=== PATIENT | male | born 1995 | race African-American/Black ===

== ENCOUNTER 2017-11-16 01:33 | Emergency (ER) | payer SELFPAY ==
[2017-11-16 02:00] LABS: #Basophils 0.1 thou/uL (0.0-0.2); #Eosinphils 0.3 thou/uL (0.0-0.7); #Lymphocytes 2.2 thou/uL (1.20-3.40); #Monocytes 0.7 thou/uL (0.11-0.59); #Neutrophils 3.4 thou/uL (1.40-6.50); %Basophils 1.5 % (0.0-1.0); %Eosinophils 4.1 % (0.0-10.0); %Lymphocytes 32.2 % (21.0-51.0); Hematocrit 40.1 % (42.0-52.0); Mean Platelet Volume 6.9 fL (7.4-10.4); Red Blood Cell (RBC) Count 4.61 mill/uL (4.70-6.10); White Blood Cell (WBC) Count 6.7 thou/uL (4.8-10.8)
[2017-11-16 02:27] LABS: ALT (SGPT) 11 U/L (8-55); AST (SGOT) 21 U/L (5-34); Acetaminophen Less than 6.0 mcg/mL (10.0-30.0); Alkaline Phosphatase 110 U/L (40-150); Anion Gap 12 mmol/L (10-20); BUN (Urea Nitrogen) 14 mg/dL (8.9-20.6); Bilirubin, Total 0.4 mg/dL (0.2-1.2); CK (CPK) 294 U/L (30-200); Calc. Creatinine Clearance 0 mL/min (70-130); Calcium 9.8 mg/dL (7.8-10.44); Carbon Dioxide 30 mmol/L (22-29); Chloride 102 mmol/L (98-107); Estimated GFR-MDRD Greater than 90; Globulin 3.6 g/dL (2.4-3.5); Protein, Total 7.7 g/dL (6.0-8.3); Salicylate Less than 8.0 mg/dL (15.0-30.0)
[2017-11-16 03:12] LABS: Bilirubin Negative (Negative); Blood, Urine Negative (Negative); Glucose, Urine (Dipstick) Negative (Negative); Ketone, Urine Negative (Negative); Nitrite Negative (Negative); Protein, Urine (Dipstick) 30 mg/dL (Neg-Trace); Urobilinogen 0.2 mg/dL (0.2-1.0)
[2017-11-16 03:13] LABS: Bacteria/HPF None Seen HPF (None Seen); RBC/HPF 0-3 HPF (0-3); Squamous Epithelial 0-3 HPF (0-3)
[2017-11-16 03:22] LABS: Amphetamine Detected (NotDetected); Methadone Not Detected (NotDetected); Methamphetamine Detected (NotDetected)
[2017-11-16 03:31] LABS: Hyaline Casts/LPF 0-3 HYALINE CAST LPF (0-3 Hyaline)
--- NOTE | 2017-11-16 07:21 | RAD ---
CHEST 1 VIEW: Date: 11/16/17 HISTORY: Trauma, pain. COMPARISON: None. FINDINGS: Portable upright chest radiograph demonstrates a normal cardiac silhouette. Pulmonary vessels and hil um are normal. No consolidation or mass. No pneumothorax or osseous abnormality. IMPRESSION: No acute cardiopulmonary process. POS: PPP
--- NOTE | 2017-11-16 11:41 | CT ---
PRELIMINARY REPORT/[facility]/EMERGENCY AFTER HOURS PROCEDURE: EXAM: CT Cervical Spine Without Intravenous Contrast EXAM DATE/TIME: Exam ordered 11/16/2017 1:46 AM CLINICAL HISTORY: 22 years old, male; Injury or trauma; Injury Hanging; Initial encounter; Patient HX: level 2 trauma 22 yo m presents to ed for suicide attempt by hanging. Ems states the noose was low to ground and rep orts pt possibly blacked out. Ems reports this is pt's second attempt at suicide this week per law en forcement but pt denies this and states this is his first attempt. Pt denies neck pain, no signs of t rauma. Denies ETOH or drugs TECHNIQUE: Axial computed tomography images of the cervical spine without intravenous contrast. Coronal and sagittal reformatted images were created and reviewed. COMPARISON: No relevant prior studies available. FINDINGS: Vertebrae: No acute cervical spine fracture is identified. 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 Discs/spinal canal/neural foramina: No acute findings. No spinal canal stenosis. Soft tissues: Normal. Lung apices: The visualized portions of the lung apices are normal. IMPRESSION: No acute cervical spine fracture is identified. Thank you for allowing us to participate in the care of your patient. Dictated and Authenticated by: Tj Avelar MD 11/16/2017 2:06 AM Central Time ([place] & [place]) FINAL REPORT CT CERVICAL SPINE WITHOUT CONTRAST: Date: 11/16/17 HISTORY: 22-year-old male with suicide attempt by hanging. COMPARISON: None. TECHNIQUE: Cervical spine CT is performed without contrast. Reformatted images are submitted for interpretation. FINDINGS: This report is in agreement with the preliminary report by [facility]. There is no acute cervical spine fra cture. 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 POS: PPP
[2017-11-16] MEDS ORDERED: ISOVUE-370 76%-LOCM 1 ML ONE (11:43)
--- NOTE | 2017-11-16 11:44 | CT ---
PRELIMINARY REPORT/[facility]/EMERGENCY AFTER HOURS PROCEDURE: EXAM: CT Angiography Neck With Intravenous Contrast EXAM DATE/TIME: Exam ordered 11/16/2017 1:50 AM CLINICAL HISTORY: 22 years old, male; Injury or trauma; Injury Hanging; Initial encounter; Patient HX: level 2 trauma 22 yo m presents to ed for suicide attempt by hanging. Ems states the noose was low to ground and rep orts pt possibly blacked out. Ems reports this is pt's second attempt at suicide this week per law en forcement but pt denies this and states this is his first attempt. Pt denies neck pain, no signs of t rauma. Denies ETOH or drugs TECHNIQUE: Axial computed tomographic angiography images of the neck with intravenous contrast using CT angiogra phy protocol. Coronal and sagittal reformatted images were created and reviewed. CONTRAST: 95 mL of ISOVUE 370 administered intravenously. COMPARISON: CT Cervical Spine WO Con 2017-11-16 01:46 FINDINGS: VASCULATURE: Right common carotid artery: Normal. No significant stenosis. No dissection or occlusion. Right internal carotid artery: Normal. Extracranial segment is patent with no significant stenosis. N o dissection or occlusion. Right external carotid artery: Normal. No occlusion. Right vertebral artery: Normal. No significant stenosis. No dissection or occlusion. Left common carotid artery: Normal. No significant stenosis. No dissection or occlusion. Left internal carotid artery: Normal. Extracranial segment is patent with no significant stenosis. No dissection or occlusion. Left external carotid artery: Normal. No occlusion. Left vertebral artery: Normal. No significant stenosis. No dissection or occlusion. NECK: Bones/joints: No acute fracture. No dislocation. Soft tissues: Unremarkable as visualized. No mass. Sinuses: There is nonspecific opacification of the RIGHT maxillary sinus. CAROTID STENOSIS REFERENCE USING NASCET CRITERIA: % ICA stenosis = (1 - narrowest ICA diameter/diameter of distal cervical ICA) x 100. Mild - <50% stenosis. Moderate - 50-69% stenosis. Severe - 70-94% stenosis. Near occlusion - 95-99% stenosis. Occluded - 100% stenosis. IMPRESSION: No acute vascular injury. Thank you for allowing us to participate in the care of your patient. Dictated and Authenticated by: Tj Avelar MD 11/16/2017 2:09 AM Central Time ([place] & [place]) FINAL REPORT CT ANGIOGRAM OF NECK: HISTORY: Level II trauma. Attempted suicide by hanging. Evaluate for injury to great vessels of neck. COMPARISON: None. TECHNIQUE: CT angiogram of the neck is performed in the axial plane. Sagittal and coronal three-dimensional refo rmatted images are submitted for interpretation. FINDINGS: This report is in agreement with the preliminary report by [facility]. No evidence of acute injury to the c ervical, carotid, or vertebral arteries. Of incidental note, the left vertebral artery origin is dire ctly off of the aortic arch. Right subclavian artery is unremarkable. Limited evaluation of the left subclavian artery due to adjacent contrast bolus in the left subclavian vein. There is right paranasa l sinus opacification suggesting sinus disease. Better interrogation with a nonemergent sinus CT is r ecommended. CODE T. POS: PPP
== END 2017-11-16 14:38 ==
LOC: ERS 01:33
DX: T14.91XA Suicide attempt, initial encounter (principal); F32.9 Major depressive disorder, single episode, unspecified; F19.10 Other psychoactive substance abuse, uncomplicated; F17.210 Nicotine dependence, cigarettes, uncomplicated; X83.8XXA Intentional self-harm by other specified means, initial encounter
CPT/HCPCS: 70498; 71010; 72125; 80053; 80306; 80307; 81003; 81015; 82550; 84443; 85025; G0390

== ENCOUNTER 2020-06-21 09:45 | Emergency (ER) | payer SELFPAY ==
[2020-06-21] MEDS ORDERED: Ketorolac Tromethamine 30 MG/ML VIAL ONE (10:24)
--- NOTE | 2020-06-21 10:59 | RAD ---
EXAM: 4 views of the left elbow HISTORY: Elbow pain COMPARISON: None FINDINGS: No elbow effusion is seen. There is no evidence of acute fracture or dislocation. No signi ficant degenerative changes are seen. No soft tissue swelling is present. IMPRESSION: No evidence of acute osseous abnormality.
== END 2020-06-21 14:57 | disposition home or self-care (01) ==
LOC: ERS 09:45
DX: M25.522 Pain in left elbow (principal); Z87.891 Personal history of nicotine dependence
CPT/HCPCS: 96372; J1885

== ENCOUNTER 2020-10-27 13:46 | Day surgery (SDC) | payer BC ==
[~2020-10-27 13:46] MED LIST: Dexamethasone 20 MG/5 ML VIAL ONE; Ketorolac Tromethamine 30 MG/ML VIAL ONE; Labetalol HCl 100 MG/20 ML VIAL ONE; Lidocaine 1% PF 5 ML VIAL ONE; PROPOFOL 200 MG/20 ML VIAL ONE; Rocuronium Bromide 10 MG/ML (10ML VIAL) ONE; Succinylcholine 200 MG/10 ml SYRINGE FS ONE
[2020-10-27] MEDS ORDERED: Boostrix 0.5 ML (Tdap) VIAL ONE (14:33)
--- NOTE | 2020-10-27 14:33 | CT ---
EXAM: CT brain without contrast HISTORY: Facial trauma while riding a horse COMPARISON: None TECHNIQUE: Multiple contiguous axial images were obtained and a CT of the brain without contrast. FINDINGS: The brain is normal in morphology and attenuation without focal lesions or confluent areas of infarction. There is no evidence of hydrocephalus, intracranial hemorrhage, or extra-axial fluid collection. There is soft tissue swelling in the forehead and surrounding the nose. The underlying calvarium is u nremarkable. There are bilateral nasal bone fractures. Fluid is seen in the right maxillary sinus. The other visualized paranasal sinuses and mastoid air cells are well aerated. IMPRESSION: 1. No evidence of acute intracranial abnormality 2. Bilateral nasal bone fractures. Dr. Allen notified of findings at 2:31 PM on 10/27/2020
--- NOTE | 2020-10-27 14:35 | CT ---
EXAM: CT of the cervical spine without contrast HISTORY: Facial trauma with neck pain COMPARISON: 11/16/2017 TECHNIQUE: Multiple contiguous axial images were obtained in a CT of the cervical spine without contr ast. Sagittal and coronal reformats were performed. 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 The vertebral bodies and in tervertebral discs demonstrate normal height and alignment without fracture or subluxation. No degenerative changes are present. No prevertebral soft tissue swelling is seen. The posterior facets are well aligned. Normal alignment of the skull base with the cervical spine is seen. The lung apices and cervical soft tissues are unremarkable. IMPRESSION: No evidence of acute osseous abnormality of the cervical spine. Dr. Allen notified of findings at 2:31 PM on 10/27/2020
--- NOTE | 2020-10-27 14:39 | CT ---
EXAM: CT face without contrast HISTORY: Facial trauma after face was hit into a trailer by horse COMPARISON: None TECHNIQUE: Multiple contiguous axial images were obtained and a CT of the face without contrast. Sagi ttal and coronal reformats were performed. FINDINGS: There are bilateral comminuted nasal bone fractures which are moderately displaced. There is a fracture the bony nasal septum. Severe perinasal soft tissue swelling is seen. The globes and retrobulbar soft tissues are unremarkable. Fluid is seen in the right maxillary sinus. No obvious fracture of the right orbital floor is seen. T he other visualized paranasal sinuses are well aerated without evidence of opacification. The mastoid air cells are well aerated. IMPRESSION: Bilateral nasal bone fractures as above [facility] notified of findings at 2:31 PM on 10/27/2020
[2020-10-27] MEDS ORDERED: Lidocaine 1% w/Epinephrine 1:100K 20 ML VIAL ONE ×2 (15:10→17:07)
[2020-10-27] MEDS ORDERED: Ondansetron PF 4 MG/2 ML Vial ONE (15:10)
[2020-10-27] MEDS ORDERED: Morphine 4 MG/ML VIAL ONE (15:10)
[2020-10-27] MEDS ORDERED: Sodium Chloride 0.9% 10 ML ONE (16:18)
[2020-10-27] MEDS ORDERED: Bacitracin Zinc Ointment 30 gm TUBE ONE (16:18)
[2020-10-27] MEDS ORDERED: Fentanyl 100 MCG/2 ML VIAL ONE ×2 (16:40→19:18)
[2020-10-27] MEDS ORDERED: AFRIN NASAL MIST 15 ML BOT ONE ×2 (18:22→19:08)
[2020-10-27] MEDS ORDERED: Ondansetron HCl/PF 4 MG/2 ML Vial IVP PRN (19:05)
[2020-10-27] MEDS ORDERED: Promethazine HCl 25 MG/ML VIAL SLOW IVP PRN (19:05)
[2020-10-27] MEDS ORDERED: Promethazine HCl 25 MG/ML VIAL IM PRN (19:05)
[2020-10-27] MEDS ORDERED: Meperidine HCl/PF 25 MG/ML VIAL SLOW IVP PRN (19:05)
[2020-10-27] MEDS ORDERED: Meperidine HCl/PF 25 MG/ML VIAL ONE (19:17)
[2020-10-27] MEDS ORDERED: HYDROcodone/Acetaminophen 5/325 mg Tablet ONE (19:50)
--- NOTE | 2020-10-28 13:00 | OP ---
DATE OF PROCEDURE: 10/27/2020 PREOPERATIVE DIAGNOSES: 1. An 8 cm complex [id number] laceration extending from the right nasal dorsum crossing midline to the left of the nasal dorsum. 2. A 4 cm deep linear frontal laceration. 3. Mild displaced nasal bone fracture. 4. A 5-mm right alar rim laceration and then 7-mm complex columellar laceration. PROCEDURES PERFORMED: 1. Closed nasal reduction. 2. Primary closure of soft tissue lacerations to include the frontal laceration, the complex nasal dorsum laceration, the alar laceration, and the columellar laceration. INDICATIONS: On the day of surgery, a 24-year-old male, presented to the emergency department status post fall. The patient stated he was riding a horse and was bucked off, his head and face hit the trailer. The patient denied loss of consciousness. Medical history has been reviewed and is unremarkable. The patient has been n.p.o. for the past 6 hours. The patient's mother is chair-side. Discussed risks, benefits, indications, and alternatives. After clinical and radiographic exam, it was determined that the patient should undergo a closed reduction of nasal fractures with primary soft tissue closure of facial laceration. The patient elected to continue with recommended procedure due to extent of complex facial lacerations. Recommended procedure to be performed in the operating room setting under general anesthesia. DESCRIPTION OF PROCEDURE: The patient was met in the preoperative holding area. The patient's identity, site and procedure were confirmed. Informed consent was completed. The patient had opportunity to ask questions and have them answered. The patient was then transferred to operating room D, placed on the operating room table in supine position. Cardiopulmonary monitors were applied. The patient was deemed a good candidate to undergo general anesthesia. The patient was then induced in state of general anesthesia after a rapid sequence intubation technique. The patient was intubated via an oral PEARL endotracheal tube. The oral PEARL was then secured by the Anesthesia team. Ocular lubricant was then placed in each eye and the patient's eyelids were taped shut to protect the globes. The patient was then prepped and draped in a standard sterile fashion. First turning our attention to the frontal 4 cm laceration using 1% local anesthesia with 1:100,000 epinephrine, locally infiltrated along the laceration margins. Similar procedure completed along the right complex nasal laceration. Next, using 1 L of saline irrigation mixed with 50,000 units of bacitracin performed a copious irrigation of both the frontal laceration and the multiple nasal lacerations. Next, redirected our attention to the frontal laceration using 4-0 Vicryl deep sutures, reapproximated the frontalis muscle and subcutaneous tissue. Next, primary soft tissue skin closure using 5-0 Prolene in a continuous running fashion and multiple interrupted sutures. Next, redirected our attention to the right nasal complex laceration. Complete laceration of the upper and lower lateral cartilage on the right nasal ala. A [id number] laceration with extensive maceration of the nasal mucosa internally. Next, using 5-0 plain gut sutures, started closure within the internal nasal mucosa lacerations with multiple interrupted sutures, then using 4-0 and 5-0 Vicryl reapproximated the subcutaneous and the upper and lower lateral cartilages that were identified. Next, using a 5-0 Prolene suture, reapproximated the skin sutures. At this point, using a nasal speculum, required multiple 5-0 plain gut sutures to reapproximate areas that required closing for nasal mucosal laceration. We then used a Boies elevator and performed a bilateral nasal reduction. Due to location of nasal laceration, elected to not place a Junaid or thermoplastic splints, although did plan to place Quintanilla splints saturated with bacitracin and secured with a 2-0 silk suture on the membranous septum. Site noted to be hemostatic. The patient was extubated without incident with spontaneous respirations intact. The patient was transferred to the PACU in stable condition. Job ID: [id number]
== END 2020-10-27 20:17 | disposition home or self-care (01) ==
LOC: ERS 13:46 → SDC/OP 15:50
PROVIDERS: ATTEND Surgery
PROC: 0NSBXZZ Reposition Nasal Bone, External Approach (ICD-10-PCS; principal; 2020-10-27)
PROC: 0HQ1XZZ Repair Face Skin, External Approach (ICD-10-PCS; principal; 2020-10-27)
DX: S02.2XXA Fracture of nasal bones, initial encounter for closed fracture (principal); S01.81XA Laceration without foreign body of other part of head, initial encounter; V80.010A Animal-rider injured by fall from or being thrown from horse in noncollision accident, initial encounter
CPT/HCPCS: 70450; 70486; 72125; 90471; 90715; 96365; 96375; J0690; J1100; J1885; J2175; J2270; J2405; J2704; J3010; J3490

== ENCOUNTER 2021-11-23 21:23 | Emergency (ER) | payer BC ==
[2021-11-23] MEDS ORDERED: Lidocaine 1% PF 5 ML VIAL ONE (22:12)
[2021-11-24] MEDS ORDERED: cefTRIAXone\\ROCEPHIN 1 GM VIAL ONE (00:23)
[2021-11-24] MEDS ORDERED: Lidocaine 1% PF 5 ML VIAL ONE (00:23)
== END 2021-11-24 00:57 ==
LOC: ERS 21:23
DX: S01.511A Laceration without foreign body of lip, initial encounter (principal); Y04.1XXA Assault by human bite, initial encounter; F17.210 Nicotine dependence, cigarettes, uncomplicated
CPT/HCPCS: 40650; 96372; J0696